=== PATIENT | female | born 1955 | race Caucasian/White ===

== ENCOUNTER → 2016-06-29 | Outpatient (CLI) | payer OTHER, MEDICAID ==
[~2016-06-29] MED LIST: BENA40TA2 PO; DILT240C PO; DOCU-137 PO; ESOM40CA39 PO; ETOD400T PO; GABA300C8 PO; GRIS1TAB PO; HYDR25TA4 PO; IPRAAER6 IN; MONT10TA34 PO; OXYC325T14 PO; PRE1T PO; SIMV-13 PO; TOLT4CAP12 PO
== END | disposition home or self-care (01) ==
LOC: LAB 11:00
PROVIDERS: ATTEND Podiatrist Foot & Ankle Surgery
DX: B07.0 Plantar wart (principal)

== ENCOUNTER 2018-06-05 14:27 | Emergency (ER) | payer OTHER, MEDICARE ==
[~2018-06-05] VITALS: Ht 162.6 cm; Wt 44.0 kg
[~2018-06-05 14:27] MED LIST changes: -BENA40TA2 PO; +BENA40TA7 PO; -DOCU-137 PO; +DOCU1CAP54 PO; +GABA300C10 PO; -GABA300C8 PO
[2018-06-05 15:13] VITALS: BP 176/77
[2018-06-05] MEDS ORDERED: KETOROLAC TROMETH 60MG/2ML VIAL IM ONE (16:15)
== END 2018-06-05 16:35 | disposition home or self-care (01) ==
LOC: ER 14:27
DX: M16.12 Unilateral primary osteoarthritis, left hip (principal); M25.552 Pain in left hip; G89.29 Other chronic pain; J44.9 Chronic obstructive pulmonary disease, unspecified; E78.5 Hyperlipidemia, unspecified; I10 Essential (primary) hypertension; F17.210 Nicotine dependence, cigarettes, uncomplicated; Z88.8 Allergy status to other drugs, medicaments and biological substances; Z79.899 Other long term (current) drug therapy; Z76.0 Encounter for issue of repeat prescription
CPT/HCPCS: 96372; 99283; J1885